=== PATIENT | male | born 1965 | race Caucasian/White ===

== ENCOUNTER → 2018-04-20 16:47 | Outpatient (CLI) | payer OTHER, SELFPAY ==
--- NOTE | 2018-04-20 17:04 | MRI_ITS ---
STUDY: MRI RIGHT SHOULDER REASON FOR EXAM: Male, 52 years old. A lifting injury 12 weeks ago. Pain. TECHNIQUE: Standardized fat and water weighted pulse sequences were obtained in all 3 orthogonal planes. COMPARISON: None. FINDINGS: There is supraspinatus tendinosis with tendon thickening, but without a demonstrated tendon tear. There is infraspinatus tendinosis with tendon thickening, but without a demonstrated tendon tear. There is subscapularis tendinosis with tendon thickening, but without a demonstrated tendon tear. Normal teres minor tendon. Normal supraspinatus muscle. Normal infraspinatus muscle. Normal subscapularis muscle. Normal teres minor muscle. Normal glenohumeral articulation. Normal humeral head and visualized proximal humerus. Normal biceps labral complex. There is subluxation of the biceps tendon consistent with a hidden lesion, series 08/17 through . There is tearing of the superior labrum adjacent to the biceps anchor, series 4 images 09/17 through . There is a 0.8 cm cystic focus of the superior glenoid. Normal capsulo- ligamentous complex. Normal rotator interval. There is mild osteoarthritis of the acromioclavicular articulation. There is a Type I morphology (flat undersurface), with a neutral orientation. There is os acromiale. There is no subacromial-subdeltoid bursal fluid. Normal visualized coracohumeral and coracoacromial ligaments. Normal quadrilateral space. Normal axillary space. Normal deltoid muscle. Normal trapezius muscle. MRI/Upper Ext Joint Only(Routine) IMPRESSION: SLAP lesion and tear of the superior labrum. Subluxation of the long head of the biceps. Tendinosis of the supraspinatus, infraspinatus, and subscapularis. No full-thickness rotator cuff tear. Electronically Signed: Quinten Woods MD at 20:38 EDT , Service support ,
== END ==
PROVIDERS: Family Provider Family Medicine; PCP Family Medicine; Visit Provider Family Medicine
DX: S46.811A Strain of other muscles, fascia and tendons at shoulder and upper arm level, right arm, initial encounter (principal)
CPT/HCPCS: 73221

== ENCOUNTER → 2018-05-01 09:36 | Outpatient (CLI) | payer OTHER, SELFPAY ==
--- NOTE | 2018-05-01 09:40 | RAD_ITS ---
STUDY: X-RAY - CERVICAL SPINE REASON FOR EXAM: Male, 52 years old. Arm weakness, injury TECHNIQUE: 6 view(s) of the cervical spine were obtained. COMPARISON: None FINDINGS: There is multilevel degenerative disease with degenerative disc disease predominating at C3-C4, C5-C6 and C6-C7. There is mild degenerative retrolisthesis at C3-C4 and C5-C6. Luschka joint arthrosis predominates on the right at C3-C4. There is mild Luschka joint arthrosis bilaterally at C5-C6 and C6-C7. There is no fracture. There is no osseous destruction. The prevertebral soft tissue structures are intact. There is evidence of carotid artery calcification. RAD/Cerv Spine 4 or 5 Views IMPRESSION: Extensive degenerative disease of the cervical spine Electronically Signed: Juan J Shaver MD at 9:25 EDT Tel , Service support ,
== END ==
PROVIDERS: Family Provider Family Medicine; PCP Family Medicine; Visit Provider Orthopaedic Surgery
DX: M62.81 Muscle weakness (generalized) (principal)
CPT/HCPCS: 72050

== ENCOUNTER → 2018-09-28 12:08 | Outpatient (CLI) | payer OTHER, SELFPAY ==
[2018-09-28 13:56] LABS: Hematocrit 44.6 % (40-54); Hemoglobin 15.2 g/dl (13.0-16.5); Mean Corp Hgb Conc 34.1 g/gl (32-36); Mean Corpuscular Hgb 30.2 pg (27.0-32.0); Mean Corpuscular Volume 88.7 fL (80-94); Mean Platelet Vol. 8.9 fl (6.2-12.0); Platelet Count 305 K/mm3 (150-450); RBC Distribution Width CV 12.7 % (11.6-14.6); RBC Distribution Width SD 41.1 fl (35.1-43.9); Red Blood Count 5.03 M/mm3 (4.6-6.2); White Blood Count 7.4 K/mm3 (4.4-11.0)
[2018-09-28 14:03] LABS: Scan Indicated on CBC? Y/N NO
[2018-09-28 14:10] LABS: AST(SGOT) 26 U/L (15-37); Alanine Aminotransfer ALT/SGPT 34 U/L (16-61); Albumin, Serum 3.7 g/dL (3.2-5.0); Alkaline Phosphatase 78 U/L (45-117); Anion Gap 8 (5-15); BUN 14 mg/dL (7-18); BUN/Creat Ratio 15.6 RATIO (10-20); Calcium,Total 9.1 mg/dL (8.5-10.1); Chloride 105 mmol/L (98-107); EST Glomerular Filtration Rate 93 mL/min (>60); Est Glom Filt Rate - Afr Amer 113 mL/min (>60); Globulin 3.7 g/dL (2.2-4.2); Glucose 95 mg/dL (74-106); Potassium 4.1 mmol/L (3.5-5.1); Protein, Total 7.4 g/dL (6.4-8.2); Sodium Level 140 mmol/L (136-145)
== END ==
PROVIDERS: Family Provider Family Medicine; PCP Family Medicine; Referring Provider Family Medicine; Visit Provider Family Medicine
DX: S43.431A Superior glenoid labrum lesion of right shoulder, initial encounter (principal); Z79.1 Long term (current) use of non-steroidal anti-inflammatories (NSAID)
CPT/HCPCS: 36415; 80053; 85027

== ENCOUNTER → 2019-10-05 14:35 | Outpatient (CLI) | payer OTHER, SELFPAY ==
--- NOTE | 2019-10-05 14:39 | RAD_ITS ---
STUDY: X-RAY - RIGHT WRIST REASON FOR EXAM: Male, 54 years old. Pain. Evaluate for arthritis. TECHNIQUE: 3 view(s) of the wrist were obtained. COMPARISON: None. FINDINGS: Normal visualized distal radius and ulna. Substantial loss of articular cartilage of the radiocarpal articulation. Normal distal radioulnar articulation. Normal carpal bones. Arthrosis of the radial carpal row. Arthrosis of the first CMC joint. Normal second through fifth carpometacarpal articulations. Normal visualized metacarpal bones. Chondrocalcinosis. RAD/Wrist min 3 Views IMPRESSION: Osteoarthritic changes as described. Chondrocalcinosis. Electronically Signed: Dax Ellison MD at 17:16 EST , Service support ,
--- NOTE | 2019-10-05 14:39 | RAD_ITS ---
STUDY: X-RAY - RIGHT WRIST REASON FOR EXAM: Male, 54 years old. Pain. Evaluate for arthritis. TECHNIQUE: 3 view(s) of the wrist were obtained. COMPARISON: None. FINDINGS: Normal visualized distal radius and ulna. Loss of articular cartilage of the radiocarpal articulation. Normal distal radioulnar articulation. Widening of the scapholunate articulation. Loss of articular cartilage of the radial carpal row. Arthrosis of the first CMC joint. Normal second through fifth carpometacarpal articulations. Normal visualized metacarpal bones. The soft tissue structures are unremarkable. RAD/Wrist min 3 Views IMPRESSION: Osteoarthritic changes as described. Widening of the scapholunate articulation. Electronically Signed: Dax Ellison MD at 17:16 EST , Service support ,
== END ==
PROVIDERS: Family Provider Family Medicine; PCP Family Medicine; Referring Provider Orthopaedic Surgery; Visit Provider Orthopaedic Surgery
DX: M25.531 Pain in right wrist (principal); M25.532 Pain in left wrist
CPT/HCPCS: 73110

== ENCOUNTER → 2020-06-06 10:07 | Outpatient (CLI) | payer OTHER, SELFPAY ==
[2020-06-06 09:30] VITALS: BMI 22.5
--- NOTE | 2020-06-06 10:08 | RAD_ITS ---
STUDY: X-RAY - RIGHT WRIST REASON FOR EXAM: Arthritis. TECHNIQUE: 3 view(s) of the wrist were obtained. COMPARISON: Radiographs 10/05/2019. FINDINGS: Normal visualized distal radius and ulna. There is joint space narrowing of the radioscaphoid articulation and lunate-capitate articulation. Normal distal radioulnar articulation. Normal carpal bones. Normal carpal articulations. Normal carpometacarpal articulation of the thumb. Normal second through fifth carpometacarpal articulations. Normal visualized metacarpal bones. The soft tissue structures are unremarkable. 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 Electronically Signed: Diego Hensley MD at 11:14 EDT Tel , Service support ,
--- NOTE | 2020-06-06 10:08 | RAD_ITS ---
STUDY: X-RAY - LEFT WRIST REASON FOR EXAM: Arthritis. TECHNIQUE: 3 view(s) of the wrist were obtained. COMPARISON: Radiographs 10/05/2019. FINDINGS: Normal visualized distal radius and ulna. There is joint space narrowing of the radioscaphoid articulation. Normal distal radioulnar articulation. Normal carpal bones. Normal carpal articulations. Normal carpometacarpal articulation of the thumb. Normal second through fifth carpometacarpal articulations. Normal visualized metacarpal bones. There are ossicles adjacent to the ulnar styloid process. RAD/Wrist min 3 Views IMPRESSION: Radioscaphoid arthrosis. Electronically Signed: Diego Hensley MD at 11:13 EDT Tel , Service support ,
== END ==
LOC: HPRAD 10:08
PROVIDERS: PCP Family Medicine; Referring Provider Orthopaedic Surgery; Visit Provider Orthopaedic Surgery
DX: M19.031 Primary osteoarthritis, right wrist (principal); M19.032 Primary osteoarthritis, left wrist
CPT/HCPCS: 73110